=== PATIENT | female | born 1985 | race African-American/Black ===

== ENCOUNTER 2020-04-29 14:21 | Inpatient (IN) | payer OTHER ==
[2020-04-29 18:45] VITALS: BMI 22.1
[2020-04-30] MEDS ORDERED: MAGNESIUM HYDROX 2400MG/30ML ORAL SUSPENSION 30 ML CUP PO PRN (01:26)
[2020-04-30] MEDS ORDERED: LOPERAMIDE HCL 2 MG CAPSULE PO PRN (01:26)
[2020-04-30] MEDS ORDERED: P-EPHED 60MG/TRIPROLIDI 2.5MG TABLET PO PRN (01:26)
[2020-04-30] MEDS ORDERED: MAGNESIUM CITRATE 300 ML BOTTLE PO PRN (01:26)
[2020-04-30] MEDS ORDERED: NICOTINE POLACRILEX 2 MG GUM BC PRN (01:26)
[2020-04-30] MEDS ORDERED: guaiFENesin 200 MG/10 ML 10 ML UNIT-DOSE CUPS PO PRN (01:26)
[2020-04-30] MEDS ORDERED: MAG HYDROX/AL HYDROX/SIMETH 30 ML UNIT-DOSE CUP PO PRN (01:26)
[2020-04-30] MEDS ORDERED: TUBERCULIN PPD 5 TU/0.1ML VIAL ID ONE (02:15)
[2020-04-30] MEDS ORDERED: levETIRAcetam XR 750 MG TAB PO SCH (10:00)
[2020-04-30] MEDS ORDERED: levETIRAcetam 500 MG TABLET (FP) PO SCH (10:15)
[2020-04-30] MEDS: NON-FORMULARY MED PO SCH ×2 (10:34→21:31)
[2020-04-30] MEDS: PRENATAL VITAMINS W/ FOLIC ACID TABLET (FP) PO SCH (10:35)
[2020-04-30] MEDS: NICOTINE 7 MG/24 HOURS TOPICAL PATCH TD SCH (10:37)
[2020-04-30] MEDS ORDERED: COLLOIDAL OATMEAL 1 BAR EACH TP PRN (13:21)
[2020-04-30 14:04] LABS: PH,URINE 5.5 (5.0-8.0); URINE APPEARANCE CLEAR; URINE BILIRUBIN NEGATIVE (NEGATIVE); URINE COLOR YELLOW; URINE GLUCOSE (UA) NEGATIVE (NEGATIVE); URINE KETONE NEGATIVE (NEGATIVE); URINE LEUK ESTERASE NEGATIVE (NEGATIVE); URINE NITRITE NEGATIVE (NEGATIVE); URINE PROTEIN NEGATIVE (NEGATIVE); URINE UROBILINOGEN 0.2 mg/dL (0.2-1.0)
[2020-04-30] MEDS: THIAMINE HCL 100 MG TABLET (FP) PO SCH (21:30)
[2020-04-30] MEDS: MELATONIN 5 MG TABLETS PO SCH (21:30)
[2020-05-01] MEDS ORDERED: PT OWN MED DRAWER 7, Y5N ONE (08:48)
[2020-05-01] MEDS: NON-FORMULARY MED PO SCH ×2 (09:09→21:04)
[2020-05-01] MEDS: PRENATAL VITAMINS W/ FOLIC ACID TABLET (FP) PO SCH (09:10)
[2020-05-01] MEDS: NICOTINE 7 MG/24 HOURS TOPICAL PATCH TD SCH (09:11)
[2020-05-01 13:17] LABS: POTASSIUM 4.1 mmol/L (3.5-5.1)
[2020-05-01 13:21] LABS: HEMOGLOBIN 11.8 GM/dL (10.7-15.3); MCH 34.2 pg (25.7-33.7); MCHC 33.6 g/dl (32.0-36.0); MEAN CELL VOLUME 101.6 fl (80-96); MEAN PLT VOLUME 9.5 fl (7.5-11.1); PLATELET COUNT 285 K/MM3 (134-434); RBC 3.45 M/mm3 (3.60-5.2); RDW 12.3 % (11.6-15.6); WHITE BLOOD COUNT 8.4 K/mm3 (4.0-10.0)
[2020-05-01 13:35] LABS: ALBUMIN 3.6 g/dl (3.4-5.0)
[2020-05-01 13:37] LABS: BLOOD UREA NITROGEN 12.6 mg/dL (7-18)
[2020-05-01 13:40] LABS: CREATININE 0.8 mg/dL (0.55-1.3); TOT PROT 6.7 g/dl (6.4-8.2)
[2020-05-01 13:42] LABS: BILIRUBIN,TOTAL 0.7 mg/dL (0.2-1)
[2020-05-01] MEDS: MELATONIN 5 MG TABLETS PO SCH (21:05)
[2020-05-01] MEDS: THIAMINE HCL 100 MG TABLET (FP) PO SCH (21:05)
[2020-05-02] MEDS: NON-FORMULARY MED PO SCH ×2 (09:40→21:08)
[2020-05-02] MEDS: NICOTINE 7 MG/24 HOURS TOPICAL PATCH TD SCH (09:41)
[2020-05-02] MEDS: PRENATAL VITAMINS W/ FOLIC ACID TABLET (FP) PO SCH (10:51)
[2020-05-02] MEDS: MELATONIN 5 MG TABLETS PO SCH (21:08)
[2020-05-02] MEDS: THIAMINE HCL 100 MG TABLET (FP) PO SCH (21:08)
[2020-05-02] MEDS ORDERED: INSULIN (NOVOLOG) ASPART 100 UNITS/ML 10ML VIAL ONE (22:55)
[2020-05-03] MEDS ORDERED: PT OWN MED DRAWER 7, Y5N ONE ×3 (09:08→19:30)
[2020-05-03] MEDS: PRENATAL VITAMINS W/ FOLIC ACID TABLET (FP) PO SCH (10:45)
[2020-05-03] MEDS: NICOTINE 7 MG/24 HOURS TOPICAL PATCH TD SCH (10:45)
[2020-05-03] MEDS: NON-FORMULARY MED PO SCH ×2 (10:45→21:31)
[2020-05-03] MEDS: THIAMINE HCL 100 MG TABLET (FP) PO SCH (21:30)
[2020-05-03] MEDS: MELATONIN 5 MG TABLETS PO SCH (21:30)
[2020-05-04] MEDS ORDERED: PT OWN MED DRAWER 7, Y5N ONE ×2 (09:09→22:17)
[2020-05-04] MEDS: NON-FORMULARY MED PO SCH ×2 (09:26→21:08)
[2020-05-04] MEDS: PRENATAL VITAMINS W/ FOLIC ACID TABLET (FP) PO SCH (09:26)
[2020-05-04] MEDS: NICOTINE 7 MG/24 HOURS TOPICAL PATCH TD SCH (09:27)
[2020-05-04] MEDS ORDERED: COLLOIDAL OATMEAL 1 BAR EACH TP PRN (16:00)
[2020-05-04] MEDS: IBUPROFEN 400 MG TABLET (FP) PO PRN ×2 (16:09→21:07)
[2020-05-04] MEDS: MELATONIN 5 MG TABLETS PO SCH (21:08)
[2020-05-04] MEDS: THIAMINE HCL 100 MG TABLET (FP) PO SCH (21:08)
[2020-05-05] MEDS: IBUPROFEN 400 MG TABLET (FP) PO PRN ×2 (06:49→14:33)
[2020-05-05] MEDS ORDERED: AMOXICILLIN 500 MG CAPSULE (FP) PO ONE (09:16)
[2020-05-05] MEDS: PRENATAL VITAMINS W/ FOLIC ACID TABLET (FP) PO SCH (10:26)
[2020-05-05] MEDS: NON-FORMULARY MED PO SCH ×2 (10:26→21:28)
[2020-05-05] MEDS: NICOTINE 7 MG/24 HOURS TOPICAL PATCH TD SCH (10:27)
[2020-05-05] MEDS: BENZOCAINE 20 % GEL TUBE MM PRN (10:27)
[2020-05-05] MEDS ORDERED: PT OWN MED DRAWER 7, Y5N ONE ×3 (11:40→21:40)
[2020-05-05] MEDS: AMOXICILLIN 500 MG CAPSULE (FP) PO SCH ×2 (14:27→21:27)
[2020-05-05] MEDS: THIAMINE HCL 100 MG TABLET (FP) PO SCH (21:27)
[2020-05-05] MEDS: MELATONIN 5 MG TABLETS PO SCH (21:27)
[2020-05-06] MEDS ORDERED: PT OWN MED DRAWER 7, Y5N ONE ×2 (03:06→19:15)
[2020-05-06] MEDS: AMOXICILLIN 500 MG CAPSULE (FP) PO SCH ×3 (06:37→21:26)
[2020-05-06] MEDS: IBUPROFEN 400 MG TABLET (FP) PO PRN (06:37)
[2020-05-06] MEDS: NON-FORMULARY MED PO SCH ×2 (10:10→21:27)
[2020-05-06] MEDS: NICOTINE 7 MG/24 HOURS TOPICAL PATCH TD SCH (10:11)
[2020-05-06] MEDS: PRENATAL VITAMINS W/ FOLIC ACID TABLET (FP) PO SCH (10:11)
[2020-05-06] MEDS: THIAMINE HCL 100 MG TABLET (FP) PO SCH (21:25)
[2020-05-06] MEDS: MELATONIN 5 MG TABLETS PO SCH (21:26)
[2020-05-07] MEDS: AMOXICILLIN 500 MG CAPSULE (FP) PO SCH ×3 (05:00→21:24)
[2020-05-07] MEDS: IBUPROFEN 400 MG TABLET (FP) PO PRN ×3 (05:00→18:56)
[2020-05-07] MEDS ORDERED: PT OWN MED DRAWER 7, Y5N ONE ×2 (05:02→09:05)
[2020-05-07] MEDS: NON-FORMULARY MED PO SCH ×2 (09:41→21:25)
[2020-05-07] MEDS: NICOTINE 7 MG/24 HOURS TOPICAL PATCH TD SCH (09:41)
[2020-05-07] MEDS: PRENATAL VITAMINS W/ FOLIC ACID TABLET (FP) PO SCH (09:41)
[2020-05-07] MEDS: BENZOCAINE 20 % GEL TUBE MM PRN (10:57)
[2020-05-07] MEDS: MELATONIN 5 MG TABLETS PO SCH (21:24)
[2020-05-07] MEDS: THIAMINE HCL 100 MG TABLET (FP) PO SCH (21:24)
[2020-05-07] MEDS: ACETAMINOPHEN 325 MG TABLET (FP) PO PRN (23:00)
[2020-05-08] MEDS: ACETAMINOPHEN 325 MG TABLET (FP) PO PRN ×3 (07:17→22:26)
[2020-05-08] MEDS: AMOXICILLIN 500 MG CAPSULE (FP) PO SCH ×3 (07:17→22:20)
[2020-05-08] MEDS: PRENATAL VITAMINS W/ FOLIC ACID TABLET (FP) PO SCH (09:42)
[2020-05-08] MEDS: NICOTINE 7 MG/24 HOURS TOPICAL PATCH TD SCH (09:42)
[2020-05-08] MEDS: LEVETIRACETAM 750 MG PO SCH ×2 (11:03→22:21)
[2020-05-08] MEDS: NON-FORMULARY MED PO SCH (11:03)
[2020-05-08] MEDS ORDERED: PT OWN MED DRAWER 7, Y5N ONE ×2 (19:39→22:59)
[2020-05-08] MEDS: THIAMINE HCL 100 MG TABLET (FP) PO SCH (22:21)
[2020-05-08] MEDS: MELATONIN 5 MG TABLETS PO SCH (22:21)
[2020-05-09] MEDS: AMOXICILLIN 500 MG CAPSULE (FP) PO SCH ×3 (07:06→22:02)
[2020-05-09] MEDS ORDERED: PT OWN MED DRAWER 7, Y5N ONE ×4 (08:59→22:02)
[2020-05-09] MEDS: NICOTINE 7 MG/24 HOURS TOPICAL PATCH TD SCH (09:53)
[2020-05-09] MEDS: PRENATAL VITAMINS W/ FOLIC ACID TABLET (FP) PO SCH (09:53)
[2020-05-09] MEDS: LEVETIRACETAM 750 MG PO SCH ×2 (09:53→22:03)
[2020-05-09] MEDS: DOCUSATE SODIUM 100 MG CAPSULE (FP) PO SCH ×2 (13:51→22:01)
[2020-05-09] MEDS: THIAMINE HCL 100 MG TABLET (FP) PO SCH (22:01)
[2020-05-09] MEDS: MELATONIN 5 MG TABLETS PO SCH (22:01)
[2020-05-09] MEDS: ACETAMINOPHEN 325 MG TABLET (FP) PO PRN (22:04)
[2020-05-10] MEDS: AMOXICILLIN 500 MG CAPSULE (FP) PO SCH ×3 (07:25→22:19)
[2020-05-10] MEDS: DOCUSATE SODIUM 100 MG CAPSULE (FP) PO SCH ×2 (09:48→22:19)
[2020-05-10] MEDS: PRENATAL VITAMINS W/ FOLIC ACID TABLET (FP) PO SCH (09:49)
[2020-05-10] MEDS: LEVETIRACETAM 750 MG PO SCH ×2 (09:49→22:19)
[2020-05-10] MEDS: NICOTINE 7 MG/24 HOURS TOPICAL PATCH TD SCH (09:54)
[2020-05-10] MEDS: ACETAMINOPHEN 325 MG TABLET (FP) PO PRN (13:09)
[2020-05-10] MEDS ORDERED: PT OWN MED DRAWER 7, Y5N ONE (14:12)
[2020-05-10] MEDS: MELATONIN 5 MG TABLETS PO SCH (22:19)
[2020-05-10] MEDS: THIAMINE HCL 100 MG TABLET (FP) PO SCH (22:19)
[2020-05-10] MEDS: COLLOIDAL OATMEAL 1 BAR EACH TP PRN (22:42)
[2020-05-11] MEDS: AMOXICILLIN 500 MG CAPSULE (FP) PO SCH ×3 (07:22→21:16)
[2020-05-11] MEDS ORDERED: PT OWN MED DRAWER 7, Y5N ONE ×3 (09:22→20:33)
[2020-05-11] MEDS: DOCUSATE SODIUM 100 MG CAPSULE (FP) PO SCH ×2 (10:16→21:16)
[2020-05-11] MEDS: PRENATAL VITAMINS W/ FOLIC ACID TABLET (FP) PO SCH (10:17)
[2020-05-11] MEDS: NICOTINE 7 MG/24 HOURS TOPICAL PATCH TD SCH (10:17)
[2020-05-11] MEDS: LEVETIRACETAM 750 MG PO SCH ×2 (10:17→21:19)
[2020-05-11] MEDS: ACETAMINOPHEN 325 MG TABLET (FP) PO PRN (21:17)
[2020-05-11] MEDS: MELATONIN 5 MG TABLETS PO SCH (21:18)
[2020-05-11] MEDS: THIAMINE HCL 100 MG TABLET (FP) PO SCH (21:18)
[2020-05-11] MEDS: BACITRACIN 0.9 GM PACKET TP SCH (21:19)
[2020-05-12] MEDS: AMOXICILLIN 500 MG CAPSULE (FP) PO SCH ×3 (07:01→22:19)
[2020-05-12] MEDS ORDERED: PT OWN MED DRAWER 7, Y5N ONE ×3 (08:49→21:17)
[2020-05-12] MEDS: DOCUSATE SODIUM 100 MG CAPSULE (FP) PO SCH ×2 (10:10→22:19)
[2020-05-12] MEDS: BACITRACIN 0.9 GM PACKET TP SCH ×2 (10:10→22:20)
[2020-05-12] MEDS: NICOTINE 7 MG/24 HOURS TOPICAL PATCH TD SCH (10:11)
[2020-05-12] MEDS: PRENATAL VITAMINS W/ FOLIC ACID TABLET (FP) PO SCH (10:11)
[2020-05-12] MEDS: LEVETIRACETAM 750 MG PO SCH ×2 (10:11→22:20)
[2020-05-12] MEDS: THIAMINE HCL 100 MG TABLET (FP) PO SCH (22:19)
[2020-05-12] MEDS: MELATONIN 5 MG TABLETS PO SCH (22:19)
[2020-05-13] MEDS: AMOXICILLIN 500 MG CAPSULE (FP) PO SCH ×3 (06:55→21:42)
[2020-05-13] MEDS ORDERED: PT OWN MED DRAWER 7, Y5N ONE ×2 (08:39→21:39)
[2020-05-13] MEDS: LEVETIRACETAM 750 MG PO SCH ×2 (10:00→21:44)
[2020-05-13] MEDS: NICOTINE 7 MG/24 HOURS TOPICAL PATCH TD SCH (10:00)
[2020-05-13] MEDS: DOCUSATE SODIUM 100 MG CAPSULE (FP) PO SCH ×2 (10:00→21:43)
[2020-05-13] MEDS: BACITRACIN 0.9 GM PACKET TP SCH ×2 (10:01→21:43)
[2020-05-13] MEDS: PRENATAL VITAMINS W/ FOLIC ACID TABLET (FP) PO SCH (10:01)
[2020-05-13] MEDS: THIAMINE HCL 100 MG TABLET (FP) PO SCH (21:42)
[2020-05-13] MEDS: MELATONIN 5 MG TABLETS PO SCH (21:42)
[2020-05-14] MEDS ORDERED: PT OWN MED DRAWER 7, Y5N ONE ×4 (03:43→19:58)
[2020-05-14] MEDS: AMOXICILLIN 500 MG CAPSULE (FP) PO SCH ×3 (07:00→21:18)
[2020-05-14] MEDS: DOCUSATE SODIUM 100 MG CAPSULE (FP) PO SCH ×2 (10:05→21:18)
[2020-05-14] MEDS: NICOTINE 7 MG/24 HOURS TOPICAL PATCH TD SCH (10:05)
[2020-05-14] MEDS: LEVETIRACETAM 750 MG PO SCH ×2 (10:05→21:18)
[2020-05-14] MEDS: PRENATAL VITAMINS W/ FOLIC ACID TABLET (FP) PO SCH (10:05)
[2020-05-14] MEDS: BACITRACIN 0.9 GM PACKET TP SCH ×2 (10:06→21:18)
[2020-05-14] MEDS: THIAMINE HCL 100 MG TABLET (FP) PO SCH (21:18)
[2020-05-14] MEDS: MELATONIN 5 MG TABLETS PO SCH (21:18)
[2020-05-15] MEDS: DOCUSATE SODIUM 100 MG CAPSULE (FP) PO SCH ×2 (09:47→21:19)
[2020-05-15] MEDS: NICOTINE 7 MG/24 HOURS TOPICAL PATCH TD SCH (09:48)
[2020-05-15] MEDS: BACITRACIN 0.9 GM PACKET TP SCH ×2 (09:48→21:17)
[2020-05-15] MEDS: LEVETIRACETAM 750 MG PO SCH ×2 (09:49→21:19)
[2020-05-15] MEDS: PRENATAL VITAMINS W/ FOLIC ACID TABLET (FP) PO SCH (09:49)
[2020-05-15] MEDS: MELATONIN 5 MG TABLETS PO SCH (21:19)
[2020-05-15] MEDS: ACETAMINOPHEN 325 MG TABLET (FP) PO PRN (21:20)
[2020-05-15] MEDS: THIAMINE HCL 100 MG TABLET (FP) PO SCH (21:23)
[2020-05-16] MEDS: NICOTINE 7 MG/24 HOURS TOPICAL PATCH TD SCH (09:41)
[2020-05-16] MEDS: PRENATAL VITAMINS W/ FOLIC ACID TABLET (FP) PO SCH (09:41)
[2020-05-16] MEDS: DOCUSATE SODIUM 100 MG CAPSULE (FP) PO SCH ×2 (09:41→21:17)
[2020-05-16] MEDS: BACITRACIN 0.9 GM PACKET TP SCH ×2 (09:43→21:18)
[2020-05-16] MEDS: LEVETIRACETAM 750 MG PO SCH ×2 (09:43→21:18)
[2020-05-16] MEDS: THIAMINE HCL 100 MG TABLET (FP) PO SCH (21:17)
[2020-05-16] MEDS: MELATONIN 5 MG TABLETS PO SCH (21:17)
[2020-05-16] MEDS: COLLOIDAL OATMEAL 1 BAR EACH TP PRN (21:23)
[2020-05-17 07:31] VITALS: BP 97/61; PULSE 59; TEMP 97.7
[2020-05-17] MEDS: NICOTINE 7 MG/24 HOURS TOPICAL PATCH TD SCH (09:53)
[2020-05-17] MEDS: DOCUSATE SODIUM 100 MG CAPSULE (FP) PO SCH ×2 (09:53→21:15)
[2020-05-17] MEDS: BACITRACIN 0.9 GM PACKET TP SCH ×2 (09:54→21:15)
[2020-05-17] MEDS: PRENATAL VITAMINS W/ FOLIC ACID TABLET (FP) PO SCH (09:54)
[2020-05-17] MEDS: LEVETIRACETAM 750 MG PO SCH ×2 (09:54→21:16)
[2020-05-17] MEDS ORDERED: PT OWN MED DRAWER 7, Y5N ONE ×3 (09:58→22:15)
[2020-05-17] MEDS: MELATONIN 5 MG TABLETS PO SCH (21:15)
[2020-05-17] MEDS: THIAMINE HCL 100 MG TABLET (FP) PO SCH (21:15)
[2020-05-18] MEDS ORDERED: PT OWN MED DRAWER 7, Y5N ONE ×2 (09:05→12:55)
[2020-05-18] MEDS: LEVETIRACETAM 750 MG PO SCH ×2 (09:58→21:17)
[2020-05-18] MEDS: PRENATAL VITAMINS W/ FOLIC ACID TABLET (FP) PO SCH (09:58)
[2020-05-18] MEDS: BACITRACIN 0.9 GM PACKET TP SCH ×2 (09:58→21:14)
[2020-05-18] MEDS: DOCUSATE SODIUM 100 MG CAPSULE (FP) PO SCH ×2 (09:58→21:13)
[2020-05-18] MEDS: NICOTINE 7 MG/24 HOURS TOPICAL PATCH TD SCH (09:58)
[2020-05-18] MEDS: MELATONIN 5 MG TABLETS PO SCH (21:13)
[2020-05-18] MEDS: THIAMINE HCL 100 MG TABLET (FP) PO SCH (21:13)
[2020-05-19] MEDS: LEVETIRACETAM 750 MG PO SCH (09:29)
[2020-05-19] MEDS: PRENATAL VITAMINS W/ FOLIC ACID TABLET (FP) PO SCH (09:29)
[2020-05-19] MEDS: DOCUSATE SODIUM 100 MG CAPSULE (FP) PO SCH (09:29)
[2020-05-19] MEDS: NICOTINE 7 MG/24 HOURS TOPICAL PATCH TD SCH (09:29)
[2020-05-19] MEDS: BACITRACIN 0.9 GM PACKET TP SCH (09:30)
== END 2020-05-19 09:37 | disposition home or self-care (01) | DRG 772 ==
LOC: YASAS 14:21 → Y3W 04-30 01:08 → Y3E 04-30 01:40
PROVIDERS: ADMIT Allergy & Immunology; ATTEND Allergy & Immunology
PROC: HZ42ZZZ Group Counseling for Substance Abuse Treatment, Cognitive-Behavioral (ICD-10-PCS; principal; 2020-04-30)
DX: F10.20 Alcohol dependence, uncomplicated (principal); F14.20 Cocaine dependence, uncomplicated; F12.20 Cannabis dependence, uncomplicated; F17.210 Nicotine dependence, cigarettes, uncomplicated; F19.24 Other psychoactive substance dependence with psychoactive substance-induced mood disorder; F41.9 Anxiety disorder, unspecified; F32.9 Major depressive disorder, single episode, unspecified; F43.10 Post-traumatic stress disorder, unspecified; G40.409 Other generalized epilepsy and epileptic syndromes, not intractable, without status epilepticus; G47.00 Insomnia, unspecified; K04.7 Periapical abscess without sinus; K02.9 Dental caries, unspecified; Z62.810 Personal history of physical and sexual abuse in childhood; Z85.41 Personal history of malignant neoplasm of cervix uteri; Z86.2 Personal history of diseases of the blood and blood-forming organs and certain disorders involving the immune mechanism; S50.811A Abrasion of right forearm, initial encounter; Y04.2XXA Assault by strike against or bumped into by another person, initial encounter; Y93.89 Activity, other specified; Y92.239 Unspecified place in hospital as the place of occurrence of the external cause; Y99.8 Other external cause status
CPT/HCPCS: 36415; 80053; 80177; 81003; 81025; 85027; 86780; C9803; U0003

== ENCOUNTER 2021-03-09 13:33 | Inpatient (IN) | payer OTHER ==
[2021-03-09] MEDS ORDERED: METHOCARBAMOL 500 MG TABLET PO PRN (15:25)
[2021-03-09] MEDS ORDERED: MAGNESIUM HYDROX 2400MG/30ML ORAL SUSPENSION 30 ML CUP PO PRN (15:25)
[2021-03-09] MEDS ORDERED: MENTHOL/PHENOL 1 EACH UD MM PRN (15:25)
[2021-03-09] MEDS ORDERED: IBUPROFEN 400 MG TABLET (FP) PO PRN (15:25)
[2021-03-09] MEDS ORDERED: MAG HYDROX/AL HYDROX/SIMETH 30 ML UNIT-DOSE CUP PO PRN (15:25)
[2021-03-09] MEDS ORDERED: ACETAMINOPHEN 325 MG TABLET (FP) PO PRN ×2 (15:25)
[2021-03-09] MEDS ORDERED: BISMUTH SUBSALICYLATE 524 MG/30 ML PO PRN (15:25)
[2021-03-09] MEDS ORDERED: MAGNESIUM CITRATE 300 ML BOTTLE PO PRN (15:25)
[2021-03-09] MEDS ORDERED: NICOTINE 10 MG CARTRIDGE (INHALER) IH PRN (15:25)
[2021-03-09] MEDS ORDERED: ONDANSETRON *ODT* 4 MG TABLET SL PRN (15:25)
[2021-03-09] MEDS ORDERED: hydrOXYzine PAMOATE 25 MG CAPSULE (FP) PO SCH (18:00)
[2021-03-09] MEDS ORDERED: hydrOXYzine PAMOATE 25 MG CAPSULE (FP) PO PRN (19:50)
[2021-03-09 20:28] VITALS: BMI 20.2
[2021-03-09] MEDS ORDERED: MELATONIN 5 MG TABLETS PO SCH (22:00)
[2021-03-09] MEDS ORDERED: QUEtiapine FUMARATE 100 MG TABLET (FP) PO ONE (22:00)
[2021-03-09] MEDS: MELATONIN 5 MG TABLETS PO SCH (22:13)
[2021-03-09] MEDS: THIAMINE HCL 100 MG TABLET (FP) PO SCH (22:13)
[2021-03-09] MEDS: levETIRAcetam 500 MG TABLET (FP) PO SCH (22:13)
[2021-03-10] MEDS: levETIRAcetam 500 MG TABLET (FP) PO SCH ×3 (08:02→17:54)
[2021-03-10] MEDS: PRENATAL VITAMINS W/ FOLIC ACID TABLET (FP) PO SCH (10:46)
[2021-03-10] MEDS: SERTRALINE HCL 50 MG TABLET (FP) PO SCH (21:57)
[2021-03-10] MEDS: THIAMINE HCL 100 MG TABLET (FP) PO SCH (22:01)
[2021-03-10] MEDS: QUEtiapine FUMARATE 100 MG TABLET (FP) PO SCH (22:03)
[2021-03-10] MEDS: MELATONIN 5 MG TABLETS PO SCH (22:03)
[2021-03-11] MEDS: SERTRALINE HCL 50 MG TABLET (FP) PO SCH (10:10)
[2021-03-11] MEDS: PRENATAL VITAMINS W/ FOLIC ACID TABLET (FP) PO SCH (10:10)
[2021-03-11] MEDS: levETIRAcetam 500 MG TABLET (FP) PO SCH ×2 (10:12→17:44)
[2021-03-11 12:15] LABS: CALCIUM 8.8 mg/dL (8.5-10.1)
[2021-03-11 12:17] LABS: ALBUMIN 3.3 g/dl (3.4-5.0); BLOOD UREA NITROGEN 21.1 mg/dL (7-18)
[2021-03-11 12:17] LABS: MCH 33.9 pg (25.7-33.7); MCHC 32.4 g/dl (32.0-36.0); MEAN CELL VOLUME 104.9 fl (80-96); MEAN PLT VOLUME 9.1 fl (7.5-11.1); PLATELET COUNT 283 10^3/uL (134-434); RBC 3.53 M/mm3 (3.60-5.2); RDW 13.2 % (11.6-15.6); WHITE BLOOD COUNT 7.4 K/mm3 (4.0-10.0)
[2021-03-11 12:19] LABS: CREATININE 0.9 mg/dL (0.55-1.3)
[2021-03-11 12:21] LABS: BILIRUBIN,TOTAL 0.3 mg/dL (0.2-1); TOT PROT 6.4 g/dl (6.4-8.2)
[2021-03-11] MEDS: MELATONIN 5 MG TABLETS PO SCH (22:03)
[2021-03-11] MEDS: QUEtiapine FUMARATE 100 MG TABLET (FP) PO SCH (22:03)
[2021-03-11] MEDS: THIAMINE HCL 100 MG TABLET (FP) PO SCH (22:03)
[2021-03-12] MEDS: levETIRAcetam 500 MG TABLET (FP) PO SCH ×2 (07:51→17:35)
[2021-03-12] MEDS: PRENATAL VITAMINS W/ FOLIC ACID TABLET (FP) PO SCH (11:04)
[2021-03-12] MEDS: SERTRALINE HCL 50 MG TABLET (FP) PO SCH (11:04)
[2021-03-12] MEDS: THIAMINE HCL 100 MG TABLET (FP) PO SCH (21:49)
[2021-03-12] MEDS: MELATONIN 5 MG TABLETS PO SCH (21:49)
[2021-03-12] MEDS: QUEtiapine FUMARATE 100 MG TABLET (FP) PO SCH (21:49)
[2021-03-13] MEDS: levETIRAcetam 500 MG TABLET (FP) PO SCH ×2 (06:26→17:47)
[2021-03-13] MEDS: SERTRALINE HCL 50 MG TABLET (FP) PO SCH (10:08)
[2021-03-13] MEDS: PRENATAL VITAMINS W/ FOLIC ACID TABLET (FP) PO SCH (10:08)
[2021-03-13] MEDS: QUEtiapine FUMARATE 100 MG TABLET (FP) PO SCH (21:13)
[2021-03-13] MEDS: MELATONIN 5 MG TABLETS PO SCH (21:13)
[2021-03-13] MEDS: THIAMINE HCL 100 MG TABLET (FP) PO SCH (21:13)
[2021-03-14] MEDS: levETIRAcetam 500 MG TABLET (FP) PO SCH ×2 (07:30→17:42)
[2021-03-14] MEDS: SERTRALINE HCL 50 MG TABLET (FP) PO SCH (10:00)
[2021-03-14] MEDS: PRENATAL VITAMINS W/ FOLIC ACID TABLET (FP) PO SCH (10:00)
[2021-03-14] MEDS: THIAMINE HCL 100 MG TABLET (FP) PO SCH (21:31)
[2021-03-14] MEDS: QUEtiapine FUMARATE 100 MG TABLET (FP) PO SCH (21:32)
[2021-03-14] MEDS ORDERED: SUVOREXANT 15 MG TABLET PO PRN (22:00)
[2021-03-15] MEDS: levETIRAcetam 500 MG TABLET (FP) PO SCH ×2 (06:29→19:03)
[2021-03-15] MEDS: PRENATAL VITAMINS W/ FOLIC ACID TABLET (FP) PO SCH (10:41)
[2021-03-15] MEDS: SERTRALINE HCL 50 MG TABLET (FP) PO SCH (10:41)
[2021-03-15] MEDS: QUEtiapine FUMARATE 100 MG TABLET (FP) PO SCH (21:17)
[2021-03-15] MEDS: THIAMINE HCL 100 MG TABLET (FP) PO SCH (21:17)
[2021-03-15] MEDS: guaiFENesin 200 MG/10 ML 10 ML UNIT-DOSE CUPS PO PRN (21:38)
[2021-03-16] MEDS: levETIRAcetam 500 MG TABLET (FP) PO SCH ×2 (07:10→17:46)
[2021-03-16] MEDS: PRENATAL VITAMINS W/ FOLIC ACID TABLET (FP) PO SCH (09:54)
[2021-03-16] MEDS: SERTRALINE HCL 50 MG TABLET (FP) PO SCH (09:54)
[2021-03-16] MEDS: QUEtiapine FUMARATE 100 MG TABLET (FP) PO SCH (21:37)
[2021-03-16] MEDS: THIAMINE HCL 100 MG TABLET (FP) PO SCH (21:37)
[2021-03-16] MEDS: MELATONIN 5 MG TABLETS PO PRN (21:37)
[2021-03-16] MEDS ORDERED: MELATONIN 5 MG TABLETS PO SCH (22:00)
[2021-03-16 23:44] VITALS: TEMP 98.4
[2021-03-17] MEDS: levETIRAcetam 500 MG TABLET (FP) PO SCH ×2 (06:50→19:18)
[2021-03-17] MEDS: SERTRALINE HCL 50 MG TABLET (FP) PO SCH (10:08)
[2021-03-17] MEDS: PRENATAL VITAMINS W/ FOLIC ACID TABLET (FP) PO SCH (10:08)
[2021-03-17] MEDS: QUEtiapine FUMARATE 100 MG TABLET (FP) PO SCH (21:54)
[2021-03-17] MEDS: guaiFENesin 200 MG/10 ML 10 ML UNIT-DOSE CUPS PO PRN (21:54)
[2021-03-17] MEDS: MELATONIN 5 MG TABLETS PO PRN (21:54)
[2021-03-17] MEDS: THIAMINE HCL 100 MG TABLET (FP) PO SCH (21:54)
[2021-03-18] MEDS: levETIRAcetam 500 MG TABLET (FP) PO SCH ×2 (07:26→19:03)
[2021-03-18] MEDS: SERTRALINE HCL 50 MG TABLET (FP) PO SCH (10:16)
[2021-03-18] MEDS: PRENATAL VITAMINS W/ FOLIC ACID TABLET (FP) PO SCH (10:16)
[2021-03-18] MEDS: MELATONIN 5 MG TABLETS PO PRN (22:28)
[2021-03-18] MEDS: QUEtiapine FUMARATE 100 MG TABLET (FP) PO SCH (22:28)
[2021-03-18] MEDS: THIAMINE HCL 100 MG TABLET (FP) PO SCH (22:28)
[2021-03-19] MEDS: levETIRAcetam 500 MG TABLET (FP) PO SCH ×2 (07:42→18:11)
[2021-03-19] MEDS: SERTRALINE HCL 50 MG TABLET (FP) PO SCH (10:34)
[2021-03-19] MEDS: PRENATAL VITAMINS W/ FOLIC ACID TABLET (FP) PO SCH (10:34)
[2021-03-19] MEDS: THIAMINE HCL 100 MG TABLET (FP) PO SCH (21:26)
[2021-03-19] MEDS: QUEtiapine FUMARATE 100 MG TABLET (FP) PO SCH (21:26)
[2021-03-19] MEDS: MELATONIN 5 MG TABLETS PO PRN (21:27)
[2021-03-20] MEDS: levETIRAcetam 500 MG TABLET (FP) PO SCH ×2 (07:45→17:50)
[2021-03-20] MEDS: SERTRALINE HCL 50 MG TABLET (FP) PO SCH (10:07)
[2021-03-20] MEDS: PRENATAL VITAMINS W/ FOLIC ACID TABLET (FP) PO SCH (10:07)
[2021-03-20] MEDS: MELATONIN 5 MG TABLETS PO PRN (21:27)
[2021-03-20] MEDS: THIAMINE HCL 100 MG TABLET (FP) PO SCH (21:27)
[2021-03-20] MEDS: QUEtiapine FUMARATE 100 MG TABLET (FP) PO SCH (21:27)
[2021-03-20 21:59] VITALS: BP 101/56; PULSE 62
[2021-03-21] MEDS: levETIRAcetam 500 MG TABLET (FP) PO SCH ×2 (07:12→19:14)
[2021-03-21] MEDS: PRENATAL VITAMINS W/ FOLIC ACID TABLET (FP) PO SCH (10:09)
[2021-03-21] MEDS: SERTRALINE HCL 50 MG TABLET (FP) PO SCH (10:10)
[2021-03-21] MEDS: THIAMINE HCL 100 MG TABLET (FP) PO SCH (21:38)
[2021-03-21] MEDS: MELATONIN 5 MG TABLETS PO PRN (21:39)
[2021-03-21] MEDS: QUEtiapine FUMARATE 100 MG TABLET (FP) PO SCH (21:39)
[2021-03-22] MEDS: levETIRAcetam 500 MG TABLET (FP) PO SCH ×2 (07:42→19:03)
[2021-03-22] MEDS: PRENATAL VITAMINS W/ FOLIC ACID TABLET (FP) PO SCH (10:02)
[2021-03-22] MEDS: SERTRALINE HCL 50 MG TABLET (FP) PO SCH (10:02)
[2021-03-22] MEDS: MELATONIN 5 MG TABLETS PO PRN (21:20)
[2021-03-22] MEDS: QUEtiapine FUMARATE 100 MG TABLET (FP) PO SCH (21:21)
[2021-03-22] MEDS: THIAMINE HCL 100 MG TABLET (FP) PO SCH (21:21)
[2021-03-23] MEDS: levETIRAcetam 500 MG TABLET (FP) PO SCH (07:43)
[2021-03-23] MEDS: SERTRALINE HCL 50 MG TABLET (FP) PO SCH (09:59)
[2021-03-23] MEDS: PRENATAL VITAMINS W/ FOLIC ACID TABLET (FP) PO SCH (09:59)
== END 2021-03-23 10:35 | disposition home or self-care (01) | DRG 772 ==
LOC: YASAS 13:33 → Y3N 19:29 → UNDOADMIN 19:29 → Y5N 19:55
PROVIDERS: ADMIT Allergy & Immunology; ATTEND Allergy & Immunology
PROC: HZ42ZZZ Group Counseling for Substance Abuse Treatment, Cognitive-Behavioral (ICD-10-PCS; principal; 2021-03-09)
DX: F10.20 Alcohol dependence, uncomplicated (principal); F14.20 Cocaine dependence, uncomplicated; F12.10 Cannabis abuse, uncomplicated; F17.210 Nicotine dependence, cigarettes, uncomplicated; F32.A Depression, unspecified; F43.10 Post-traumatic stress disorder, unspecified; G47.00 Insomnia, unspecified; G40.909 Epilepsy, unspecified, not intractable, without status epilepticus; Z85.41 Personal history of malignant neoplasm of cervix uteri; Z62.810 Personal history of physical and sexual abuse in childhood; Z63.4 Disappearance and death of family member; Z56.0 Unemployment, unspecified; Z59.00 Homelessness unspecified
CPT/HCPCS: 36415; 80053; 80177; 85027; 86780; C9803-CS; U0003; U0005

== ENCOUNTER 2022-04-21 12:17 | Inpatient (IN) | payer OTHER ==
[2022-04-21 13:12] VITALS: BMI 28.7
[2022-04-21] MEDS ORDERED: MAGNESIUM HYDROX 2400MG/30ML ORAL SUSPENSION 30 ML CUP PO PRN (13:52)
[2022-04-21] MEDS ORDERED: NALOXONE HCL (KLOXXADO) 8 MG SPRAY NS PRN (13:52)
[2022-04-21] MEDS ORDERED: DICYCLOMINE HCL 10 MG CAPSULE PO PRN (13:52)
[2022-04-21] MEDS ORDERED: hydrOXYzine PAMOATE 25 MG CAPSULE (FP) PO PRN (13:52)
[2022-04-21] MEDS ORDERED: ACETAMINOPHEN 325 MG TABLET (FP) PO PRN ×2 (13:52)
[2022-04-21] MEDS ORDERED: MAG HYDROX/AL HYDROX/SIMETH 30 ML UNIT-DOSE CUP PO PRN (13:52)
[2022-04-21] MEDS ORDERED: IBUPROFEN 600 MG TABLET (FP) PO PRN (13:52)
[2022-04-21] MEDS ORDERED: ONDANSETRON *ODT* 4 MG TABLET SL PRN (13:52)
[2022-04-21] MEDS ORDERED: POLYETHYLENE GLYCOL (HEALTHYLAX) 3350 17 GM PACKET PO PRN (13:52)
[2022-04-21] MEDS ORDERED: BENZOCAINE/MENTHOL (CHLORASEPTIC ) LOZENGE MM PRN (13:52)
[2022-04-21] MEDS ORDERED: LOPERAMIDE HCL 2 MG CAPSULE PO PRN (13:52)
[2022-04-21] MEDS ORDERED: METHOCARBAMOL 500 MG TABLET PO PRN (13:52)
[2022-04-21] MEDS ORDERED: IBUPROFEN 400 MG TABLET (FP) PO PRN (13:52)
[2022-04-21] MEDS ORDERED: BISMUTH SUBSALICYLATE 262 MG/15 ML BTL PO PRN (13:52)
[2022-04-21] MEDS ORDERED: chlordiazePOXIDE HCL 25 MG CAPSULE PO PRN (13:56)
[2022-04-21] MEDS: chlordiazePOXIDE HCL 25 MG CAPSULE PO SCH ×2 (18:00→22:56)
[2022-04-21 18:57] LABS: HEMOGLOBIN 13.5 GM/dL (10.7-15.3); MCH 34.3 pg (25.7-33.7); MCHC 33.8 g/dl (32.0-36.0); MEAN CELL VOLUME 101.5 fl (80-96); MEAN PLT VOLUME 8.9 fl (7.5-11.1); PLATELET COUNT 318 10^3/uL (134-434); RBC 3.94 M/mm3 (3.60-5.2); RDW 13.3 % (11.6-15.6); WHITE BLOOD COUNT 12.7 K/mm3 (4.0-10.0)
[2022-04-21 19:25] LABS: CALCIUM 8.9 mg/dL (8.5-10.1)
[2022-04-21 19:26] LABS: ALBUMIN 3.6 g/dl (3.4-5.0); BLOOD UREA NITROGEN 13.1 mg/dL (7-18)
[2022-04-21 19:29] LABS: CREATININE 0.9 mg/dL (0.55-1.3)
[2022-04-21 19:31] LABS: BILIRUBIN,TOTAL 0.6 mg/dL (0.2-1); TOT PROT 6.7 g/dl (6.4-8.2)
[2022-04-21] MEDS ORDERED: MELATONIN 5 MG TABLETS PO SCH (22:00)
[2022-04-21] MEDS: QUEtiapine FUMARATE 50 MG TABLET PO PRN (22:07)
[2022-04-21] MEDS: THIAMINE HCL 100 MG TABLET (FP) PO SCH (22:08)
[2022-04-21] MEDS: levETIRAcetam 500 MG TABLET (FP) PO SCH (22:08)
[2022-04-22] MEDS: chlordiazePOXIDE HCL 25 MG CAPSULE PO SCH ×4 (06:03→22:55)
[2022-04-22] MEDS: levETIRAcetam 500 MG TABLET (FP) PO SCH ×2 (10:39→22:21)
[2022-04-22] MEDS: PRENATAL VITAMINS W/ FOLIC ACID TABLET (FP) PO SCH (10:39)
[2022-04-22] MEDS: guaiFENesin 200 MG/10 ML 10 ML UNIT-DOSE CUPS PO PRN ×2 (13:23→22:22)
[2022-04-22] MEDS: NICOTINE 10 MG CARTRIDGE (INHALER) IH PRN ×2 (13:52→22:24)
[2022-04-22] MEDS ORDERED: COLLOIDAL OATMEAL 1 BAR EACH TP PRN (15:31)
[2022-04-22] MEDS: THIAMINE HCL 100 MG TABLET (FP) PO SCH (22:21)
[2022-04-22] MEDS: QUEtiapine FUMARATE 50 MG TABLET PO PRN (22:22)
[2022-04-23] MEDS: chlordiazePOXIDE HCL 25 MG CAPSULE PO SCH ×4 (06:35→22:29)
[2022-04-23] MEDS: levETIRAcetam 500 MG TABLET (FP) PO SCH ×2 (10:58→21:33)
[2022-04-23] MEDS: PRENATAL VITAMINS W/ FOLIC ACID TABLET (FP) PO SCH (11:02)
[2022-04-23] MEDS: guaiFENesin 200 MG/10 ML 10 ML UNIT-DOSE CUPS PO PRN (18:38)
[2022-04-23] MEDS: THIAMINE HCL 100 MG TABLET (FP) PO SCH (21:33)
[2022-04-23] MEDS: QUEtiapine FUMARATE 50 MG TABLET PO PRN (21:33)
[2022-04-23] MEDS: NICOTINE 10 MG CARTRIDGE (INHALER) IH PRN (21:35)
[2022-04-24] MEDS ORDERED: chlordiazePOXIDE HCL 10 MG CAPSULE PO PRN
[2022-04-24] MEDS: chlordiazePOXIDE HCL 10 MG CAPSULE PO SCH ×4 (05:17→23:13)
[2022-04-24] MEDS: levETIRAcetam 500 MG TABLET (FP) PO SCH ×2 (09:15→22:33)
[2022-04-24] MEDS: PRENATAL VITAMINS W/ FOLIC ACID TABLET (FP) PO SCH (09:15)
[2022-04-24] MEDS: guaiFENesin 200 MG/10 ML 10 ML UNIT-DOSE CUPS PO PRN ×2 (13:16→22:37)
[2022-04-24] MEDS: NICOTINE 10 MG CARTRIDGE (INHALER) IH PRN ×2 (13:17→19:21)
[2022-04-24 14:07] LABS: HIV INTERPRETATION NEGATIVE (NEGATIVE)
[2022-04-24] MEDS: THIAMINE HCL 100 MG TABLET (FP) PO SCH (22:33)
[2022-04-24] MEDS: QUEtiapine FUMARATE 50 MG TABLET PO PRN (22:34)
[2022-04-25] MEDS ORDERED: chlordiazePOXIDE HCL 10 MG CAPSULE PO SCH (05:00)
[2022-04-25] MEDS: PRENATAL VITAMINS W/ FOLIC ACID TABLET (FP) PO SCH (09:06)
[2022-04-25] MEDS: levETIRAcetam 500 MG TABLET (FP) PO SCH (09:06)
[2022-04-25 09:15] VITALS: RESP 18; TEMP 96.8
[2022-04-25 09:33] VITALS: BP 105/71; PULSE 56
[2022-04-26] MEDS ORDERED: chlordiazePOXIDE HCL 10 MG CAPSULE PO ONE (05:00)
== END 2022-04-25 09:37 | disposition other institution (70) | DRG 774 ==
LOC: YASAS 12:17 → Y6N 14:59 → Y3N 04-22 18:07
PROVIDERS: ADMIT Allergy & Immunology; ATTEND Surgery
PROC: HZ2ZZZZ Detoxification Services for Substance Abuse Treatment (ICD-10-PCS; principal; 2022-04-21)
DX: F14.20 Cocaine dependence, uncomplicated (principal); F10.230 Alcohol dependence with withdrawal, uncomplicated; F17.210 Nicotine dependence, cigarettes, uncomplicated; F19.282 Other psychoactive substance dependence with psychoactive substance-induced sleep disorder; F19.24 Other psychoactive substance dependence with psychoactive substance-induced mood disorder; F32.A Depression, unspecified; G40.909 Epilepsy, unspecified, not intractable, without status epilepticus; F43.10 Post-traumatic stress disorder, unspecified; F98.8 Other specified behavioral and emotional disorders with onset usually occurring in childhood and adolescence; Z62.810 Personal history of physical and sexual abuse in childhood; Z56.0 Unemployment, unspecified; Z59.00 Homelessness unspecified
CPT/HCPCS: 36415; 80053; 80177; 81025; 82140; 85027; 86780; 87389; 93005; 93010; C9803-CS; U0003; U0005

== ENCOUNTER 2022-04-23 11:48 | Emergency (ER) | payer OTHER ==
[2022-04-23 12:05] VITALS: TEMP 98.3; BMI 28.7
[2022-04-23] MEDS ORDERED: ACETAMINOPHEN 1000 MG/100 ML BAG IVPB ONE (12:28)
[2022-04-23 13:07] LABS: BASO % 1.2 % (0-2.0); EOS % 1.7 % (0-4.5); HEMATOCRIT 38.2 % (32.4-45.2); HEMOGLOBIN 13.1 GM/dL (10.7-15.3); LYMPH % 25.3 % (8-40); MCH 34.8 pg (25.7-33.7); MCHC 34.2 g/dl (32.0-36.0); MEAN CELL VOLUME 101.7 fl (80-96); MEAN PLT VOLUME 8.9 fl (7.5-11.1); MONO % 4.5 % (3.8-10.2); NEUT % 67.3 % (42.8-82.8); PLATELET COUNT 301 10^3/uL (134-434); RBC 3.76 M/mm3 (3.60-5.2); RDW 13.3 % (11.6-15.6); WHITE BLOOD COUNT 9.6 K/mm3 (4.0-10.0)
[2022-04-23 13:59] LABS: ALBUMIN 3.2 g/dl (3.4-5.0); BLOOD UREA NITROGEN 14.9 mg/dL (7-18)
[2022-04-23 14:02] LABS: CREATININE 0.8 mg/dL (0.55-1.3)
[2022-04-23 14:03] LABS: BILIRUBIN,TOTAL 0.2 mg/dL (0.2-1); TOT PROT 6.2 g/dl (6.4-8.2)
[2022-04-23 15:02] VITALS: BP 104/63; PULSE 66; RESP 16
== END 2022-04-23 15:29 | disposition short-term general hospital (02) ==
LOC: JER 11:48
DX: G40.89 Other seizures (principal)
CPT/HCPCS: 0241U-QW; 36415; 70450-TC; 71045-TC-FY; 80053; 80177; 82962; 83605; 85025; 93005; 93010; 99285-25